=== PATIENT | female | born 1970 | race Caucasian/White ===

== ENCOUNTER 2016-09-18 00:25 | Emergency (ER) | payer MEDICAID ==
[~2016-09-18 00:25] MED LIST: ALBUTEROL; QVAR
[2016-09-18 02:42] LABS: CALCIUM 8.2 mg/dL (8.5-10.1); CARBON DIOXIDE 26.5 mmol/L (21-32); CHLORIDE SERUM 105 mmol/L (98-107); CREATININE SERUM 0.6 mg/dL (0.6-1.0); GFR1 > 60 mL/min; GLUCOSE SERUM 110 mg/dL (74-106); POTASSIUM SERUM 3.5 mmol/L (3.5-5.1); SODIUM SERUM 142 mmol/L (136-145)
[2016-09-18 02:47] LABS: ALKALINE PHOSPHATASE 100 U/L (46-116); ALT/SGPT 37 U/L (14-59); AST/SGOT 45 U/L (15-37); BILIRUBIN TOTAL 0.37 mg/dL (0.20-1.00); LIPASE 154 IU/L (73-393); TOTAL PROTEIN, SERUM 6.7 g/dL (6.4-8.2)
[2016-09-18 02:48] LABS: ALBUMIN 3.2 g/dL (3.4-5.0)
[2016-09-18 02:54] LABS: BASOPHIL % 0.5 % (0-2); PLATELET COUNT 227 x10^3mcL (130-400)
[2016-09-18 02:57] LABS: RED CELL DISTRIBUTION WIDTH 20.2 % (11.5-14.5)
[2016-09-18 03:36] VITALS: BP 120/70
== END 2016-09-18 03:36 | disposition home or self-care (01) ==
LOC: ED 00:25
PROVIDERS: Emergency Medicine
DX: R10.30 Lower abdominal pain, unspecified (principal); R11.10 Vomiting, unspecified; R06.2 Wheezing; F11.20 Opioid dependence, uncomplicated; J45.909 Unspecified asthma, uncomplicated; G89.29 Other chronic pain; M54.2 Cervicalgia; M54.9 Dorsalgia, unspecified; Z88.8 Allergy status to other drugs, medicaments and biological substances
CPT/HCPCS: J2270; J2405; J7613; J7644; Q0092

== ENCOUNTER 2016-10-09 00:51 | Emergency (ER) | payer MEDICAID ==
[2016-10-09 03:33] LABS: BASOPHIL % 1.4 % (0-2); PLATELET COUNT 229 x10^3mcL (130-400)
[2016-10-09 04:02] LABS: CALCIUM 8.4 mg/dL (8.5-10.1); CARBON DIOXIDE 26.4 mmol/L (21-32); CHLORIDE SERUM 105 mmol/L (98-107); CREATININE SERUM 0.6 mg/dL (0.6-1.0); GFR1 > 60 mL/min; GLUCOSE SERUM 106 mg/dL (74-106); POTASSIUM SERUM 3.6 mmol/L (3.5-5.1); SODIUM SERUM 142 mmol/L (136-145)
[2016-10-09 04:24] LABS: RED CELL DISTRIBUTION WIDTH 19.7 % (11.5-14.5)
[2016-10-09 05:25] VITALS: BP 125/61
== END 2016-10-09 05:25 | disposition home or self-care (01) ==
LOC: ED 00:51
PROVIDERS: Emergency Medicine
DX: N93.9 Abnormal uterine and vaginal bleeding, unspecified (principal); D25.9 Leiomyoma of uterus, unspecified; D64.9 Anemia, unspecified; J45.909 Unspecified asthma, uncomplicated
CPT/HCPCS: 36415; J2270; Q0162

== ENCOUNTER 2016-11-02 05:20 | Emergency (ER) | payer MEDICAID ==
[2016-11-02 07:07] LABS: BASOPHIL % 0.4 % (0-2); PLATELET COUNT 230 x10^3mcL (130-400)
[2016-11-02 07:08] LABS: RED CELL DISTRIBUTION WIDTH 17.7 % (11.5-14.5); rbc morphology (normal/abnorm) ABNORMAL (NORMAL)
[2016-11-02 07:20] VITALS: BP 117/67
[2016-11-02 07:27] LABS: CALCIUM 8.5 mg/dL (8.5-10.1); CARBON DIOXIDE 25.9 mmol/L (21-32); CHLORIDE SERUM 109 mmol/L (98-107); CREATININE SERUM 0.6 mg/dL (0.6-1.0); GFR1 > 60 mL/min; GLUCOSE SERUM 93 mg/dL (74-106); POTASSIUM SERUM 3.4 mmol/L (3.5-5.1); SODIUM SERUM 142 mmol/L (136-145)
[2016-11-02 08:42] LABS: ovalocyte/elliptocyte 1+
== END 2016-11-02 07:51 | disposition home or self-care (01) ==
LOC: ED 05:20
PROVIDERS: Emergency Medicine
DX: R10.9 Unspecified abdominal pain (principal); J45.909 Unspecified asthma, uncomplicated; G89.4 Chronic pain syndrome; Z88.5 Allergy status to narcotic agent; Z88.8 Allergy status to other drugs, medicaments and biological substances; Z88.6 Allergy status to analgesic agent; Z79.899 Other long term (current) drug therapy
CPT/HCPCS: 36415

== ENCOUNTER 2016-11-08 01:01 | Emergency (ER) | payer MEDICAID ==
[2016-11-08 03:22] LABS: CALCIUM 8.2 mg/dL (8.5-10.1); CARBON DIOXIDE 23.5 mmol/L (21-32); CHLORIDE SERUM 106 mmol/L (98-107); CREATININE SERUM 0.6 mg/dL (0.6-1.0); GFR1 > 60 mL/min; GLUCOSE SERUM 98 mg/dL (74-106); POTASSIUM SERUM 3.5 mmol/L (3.5-5.1); SODIUM SERUM 140 mmol/L (136-145)
[2016-11-08 03:24] LABS: BASOPHIL % 0.4 % (0-2); PLATELET COUNT 250 x10^3mcL (130-400)
[2016-11-08 03:26] LABS: ALKALINE PHOSPHATASE 70 U/L (46-116); ALT/SGPT 29 U/L (14-59); AST/SGOT 20 U/L (15-37); BILIRUBIN TOTAL 0.28 mg/dL (0.20-1.00); TOTAL PROTEIN, SERUM 6.9 g/dL (6.4-8.2)
[2016-11-08 03:27] LABS: ALBUMIN 3.2 g/dL (3.4-5.0)
[2016-11-08 03:30] LABS: RED CELL DISTRIBUTION WIDTH 17.5 % (11.5-14.5)
[2016-11-08 04:50] VITALS: BP 109/56
== END 2016-11-08 04:50 | disposition home or self-care (01) ==
LOC: ED 01:01
PROVIDERS: Emergency Medicine
DX: D50.9 Iron deficiency anemia, unspecified (principal); D25.9 Leiomyoma of uterus, unspecified; J45.909 Unspecified asthma, uncomplicated
CPT/HCPCS: 36415; J1885

== ENCOUNTER 2016-11-14 15:25 | Inpatient (IN) | payer MEDICAID ==
[~2016-11-14] VITALS: Ht 170.2 cm; Wt 76.7 kg
--- NOTE | 2016-11-14 16:17 | NUR ---
MSE COMPLETED BY DR VARGAS
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
--- NOTE | 2016-11-14 16:21 | NUR ---
LAB AT BEDSIDE
[2016-11-14 16:32] LABS: microscopic required? NO
[2016-11-14 16:39] LABS: UA SPECIFIC GRAVITY >=1.030 (1.005-1.035); urine erythrocyte NEGATIVE (NEGATIVE)
[2016-11-14 16:47] LABS: CALCIUM 8.1 mg/dL (8.5-10.1); CARBON DIOXIDE 27.8 mmol/L (21-32); CHLORIDE SERUM 109 mmol/L (98-107); CREATININE SERUM 0.7 mg/dL (0.6-1.0); GFR1 > 60 mL/min; GLUCOSE SERUM 105 mg/dL (74-106); POTASSIUM SERUM 3.5 mmol/L (3.5-5.1); SODIUM SERUM 140 mmol/L (136-145)
[2016-11-14 16:51] LABS: ALKALINE PHOSPHATASE 74 U/L (46-116); ALT/SGPT 18 U/L (14-59); AST/SGOT 14 U/L (15-37); BILIRUBIN TOTAL 0.3 mg/dL (0.20-1.00); LIPASE 158 IU/L (73-393); TOTAL PROTEIN, SERUM 6.9 g/dL (6.4-8.2)
[2016-11-14 16:53] LABS: ALBUMIN 3.1 g/dL (3.4-5.0)
--- NOTE | 2016-11-14 17:42 | NUR ---
PT REPORTING PAIN OF 8 DR VARGAS MADE AWARE
--- NOTE | 2016-11-14 18:13 | NUR ---
PT OFF THE FLOOR TO US.
--- NOTE | 2016-11-14 18:25 | NUR ---
PT NOW LEAVING TO US AT THIS TIME VIA WHEELCHAIR. PT AMBUALTED TO WHEELCHAIR AT BEDSIDE WITH OUT ASSISTANCE.
--- NOTE | 2016-11-14 19:15 | NUR ---
REPORT RECEIVED FROM JOEY BRITO. PT RESTING IN BED WITH NO SIGNS OF DISTRESS NOTED AT THIS TIME.
--- NOTE | 2016-11-14 20:10 | NUR ---
PT UP TO RESTROOM. PT REQUESTING MORE PAIN MEDICATON. DR VARGAS MADE AWARE.
--- NOTE | 2016-11-14 20:21 | NUR ---
DR VARGAS AT BEDSIDE TO DISCUSS PLAN OF CARE WITH PT
[2016-11-14 20:25] LABS: BASOPHIL % 0.5 % (0-2); PLATELET COUNT 251 x10^3mcL (130-400); RED CELL DISTRIBUTION WIDTH 17.5 % (11.5-14.5)
[2016-11-14] MEDS ORDERED: PROAIR HFA8.5 GM IH (21:14)
[2016-11-14] MEDS ORDERED: MORPHINE SULFAT15 MG PO (21:14)
[2016-11-14] MEDS ORDERED: NORETHINDRONE AC5 MG PO (21:14)
[2016-11-14] MEDS ORDERED: QVAR0.08 MG/Ac IH (21:16)
[2016-11-14] MEDS ORDERED: NATURAL IRON65 MG PO (21:16)
--- NOTE | 2016-11-14 21:37 | NUR ---
REPORT GIVEN TO BLAINE BRITO.
[2016-11-14 21:54] VITALS: BP 110/61
--- NOTE | 2016-11-14 22:05 | NUR ---
RECEIVED PATIENT FROM ED VIA GUERNEY, PATIENT ALERT AND ORIENTED, TELE # 6 SR, IV ACCESS TO LAC WNL, C/O PAIN TO HER ABD AND BACK, WILL MEDICATE ORDERED, CORIENTED PATIENT TO ROOM AND SURROUNDINGS, BED IN LOW POSITION, BED RAILS UP X 2, CALL LIGHT WITHIN REACH, WILL ENDORSE CARE TO PRIMARY NURSE BLAINE BRITO
--- NOTE | 2016-11-14 22:15 | NUR ---
RECEIVED PT FROM RUFUS BRITO. PT IS ALERT/ORIENTED X4. PT C/O BACK AND ABD PAIN, STATES THE PAIN LEVEL IS A 10/10. PT REQUESTING "MORPHINE 5 MG" AND "BENADRYL 25 MG". WILL NOTIFY ANDRÉS OF PT REQUEST. PT STATES IS NOT BLEEDING VAGINALLY AT THIS TIME.PT STATES THE VAGINAL BLEEDING STOPPED AT APPROXIMATELY "4:00 TODAY". WILL CONTINUE TO MONITOR. PT IS MISSING SEVERAL TEETH.
--- NOTE | 2016-11-14 22:30 | NUR ---
INFORMED DR BOWEN OF PT REQUEST FOR "5 MG MORPHINE" AND BENADRYL [address] BOWEN STATED HE WILL SPEAK TO THE PT.
[2016-11-14 22:42] LABS: MAGNESIUM 1.8 mg/dL (1.8-2.4); PHOSPHOROUS 3.5 mg/dL (2.5-4.9)
[2016-11-14 22:43] LABS: CHOLESTEROL/HDL RATIO 3.4
--- NOTE | 2016-11-14 22:45 | NUR ---
SCD'S APPLIED TO BLE
[2016-11-14 22:46] LABS: T3 TOTAL 1.21 ng/mL
[2016-11-14 22:55] LABS: FREE T4 0.93 ng/dL (0.76-1.46); FREE THYROXINE INDEX 2.6 ug/dL (1.4-4.5); T4(THYROXINE) 7.5 ug/dL (4.7-13.3)
[2016-11-14 23:14] LABS: AMPHETAMINE QUAL UR NONE DETECTED (NEG <=1000)
--- NOTE | 2016-11-14 23:39 | NUR ---
DR BOWEN STATED DR SALCIDO IS THE ADMITTING MD. SPOKE WITH DR SALCIDO, INFORMED HIM PT C/O ABD AND BACK PAIN 01/19. ALSO INFORMED HIM OF PT REQUEST OF "MORPHINE 5 MG" AND OF "BENADRYL 25 MG". ALSO INFORMED DR SALCIDO PT IS REQUESTING "ORANGE JUICE" AND "CRACKERS". DR SALCIDO STATED HE WILL GO AND SEE THE PT.
--- NOTE | 2016-11-15 00:33 | NUR ---
PT C/O BACK AND ABD PAIN. PT REQUESTING MORPHINE AND BENADRYL. PT STATES WANTS THE BENADRYL TO PREVENT "REACTION FROM THE MORPHINE". MEDICATED WITH BENADRYL PER MD ONE TIME ORDER. WILL CONTINUE TO MONITOR.
--- NOTE | 2016-11-15 01:18 | NUR ---
WENT IN PT ROOM, [place] [address]. MORPHINE SULFATE NOT ADMINISTERED TO PT, PT SLEEPING. WILL CONTINUE TO MONITOR.
--- NOTE | 2016-11-15 02:56 | NUR ---
PT SLEEPING. BREATHING IS EVEN AND UNLABORED. NO DISTRESS NOTED. WILL CONTINUE TO MONITOR.
[2016-11-15 05:11] VITALS: BP 110/60
--- NOTE | 2016-11-15 05:11 | NUR ---
PT C/O BACK, LF SHOULDER AND ABD PAIN. PT STATED OK TO ADMINISTER THE MORPHINE SULFATE WITHOUT THE BENADRYL. DR BOWEN IN ROOM. PT REQUESTING THE DOSE OF MORPHINE TO BE INCREASED.
--- NOTE | 2016-11-15 05:21 | NUR ---
INFORMED DR SALCIDO OF PT REQUESTING AN INCREASE OF THE MORPHINE, PT STATING 2 MG "DOESEN'T WORK". NO NEW ORDERS GIVEN. WILL CONTINUE TO MONITOR.
--- NOTE | 2016-11-15 05:39 | NUR ---
PT SLEPT IN LONG INTERVALS DURING THE NIGHT. WILL CONTINUE TO MONITOR.
--- NOTE | 2016-11-15 06:59 | NUR ---
PT NOW SLEEPING AFTER BEING MEDICATED WITH MORPHINE SULFATE AT 0511. WILL CONTINUE TO MONITOR.
[2016-11-15 08:12] LABS: CALCIUM 7.8 mg/dL (8.5-10.1); CHLORIDE SERUM 111 mmol/L (98-107); CREATININE SERUM 0.6 mg/dL (0.6-1.0); GFR1 > 60 mL/min; GLUCOSE SERUM 79 mg/dL (74-106); POTASSIUM SERUM 3.6 mmol/L (3.5-5.1); SODIUM SERUM 136 mmol/L (136-145)
[2016-11-15 09:35] LABS: BASOPHIL % 0.5 % (0-2); PLATELET COUNT 258 x10^3mcL (130-400)
[2016-11-15 09:40] LABS: RED CELL DISTRIBUTION WIDTH 17.2 % (11.5-14.5)
[2016-11-15 09:45] VITALS: BP 108/54
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
[2016-11-15 10:50] LABS: rbc morphology (normal/abnorm) ABNORMAL (NORMAL)
[2016-11-15 10:54] LABS: ovalocyte/elliptocyte 1+
--- NOTE | 2016-11-15 10:58 | NUR ---
SEEN BY THE INTERNS AND DR ACUNA AND PLAN OF CARE DISCUSSED. THE INTERNS AND THE RESIDENT NOTED THE FOUL ODOR AND WILL NEED TO HAVE THE PATIENT DO ORAL CARE AND A SHOWER. TONYA HAS BEEN ANXIOUS ABOUT HER H AND H AND ADVSIED THAT NO TRANSFUSE SHE DOES NOT MEET THAT CRITERIA AT THIS TIME. SHE WANTS A DIET SHE STATES THAT THE DOCTOR STATES SHE CAN EAT AND SHE WANTS HER PAIN MEDICATION INCREASED. WILL AWAIT ORDERS FOR ANY OF THESE REQUESTS INDICATED. PATIENT ENCOURAGE TO UTILIZE PATIENCE AT THIS TIME. WILL CONTINUE TO MONITOR.
--- NOTE | 2016-11-15 13:00 | NUR ---
TONYA ADVISED OF THE MORPHIEN IS NOT DUE FOR ANOTHER TWENTY MINUTS AND STELLA WANTS FOOD AND SHE WANT MORE OF THE PAIN MEDICAION IN A SDOSAGE CHANGE . ADVISED THE PATIENT SHE IS TO BE NPO AND THAT THE MOHEIN IS NOT CHANGED AND NO RODERE TO BE CHANGED AT THIS TIME. ROSA IS TO BE SEEN BY AN OBGYN AND POSSIBLE SURGERY WITH DR Shiraz WELCH. SHE DOES NOT WANT THIS SURGERY AND SHE DISSED THE NURSE AND AT THIS TIME REFUSED MEDICAION OR CARE. STAFF WHENT BACK AGAIN WHEN THE MOPHIEN WAS DUE AND DOUG DUMONT. SHE AGREED TO TAKE BUT ASKED AGAIN IF THE DOCTOR HAS RAISE THE DOSAGE. PATIENT IS DETERMINED TO GET MORE SHE STATES THE 2MG DOD SNOT TOUCH HER AT ALL. SHE HAS BEEN ENCOURAGED SEVERAL TIMES TO BATH AND GIVEN ALL THE EQUIPMENT TO DO SO BUT SHE KEEPS PUTTING IT OFF AND SHE STATES SHE WILL DO LATER. TONYA PETTYS BEEN ADVISED OF HER PERSONAL HYGENE AND SHE IS NOW ASKING FOR BENADRYL. IT WAS A ONE TIME DOSE YESTERDAY AND NO FURTHER ORDERS AT THIS TIME. A SIDE ISSUE ADVISED THAT A BATH MAY ALSO RELIEVE THE ITCHNESS OF THE PATIENT AND TO PLEASE BATH. SO FAR SHE HAS PUT OFF THE NURSE AND FITNESS MANAGER. WILL CONTINUE TO ENCOURAGE COMPLIANCE.
[2016-11-15 13:09] VITALS: BP 108/54
[2016-11-15 13:25] VITALS: BP 101/50
--- NOTE | 2016-11-15 14:34 | NUR ---
PATIENT AGREEABLE FOR SHOWERING. DISCONNECTED AND APPLIED PROTECTION TO THE IV SITES. PATIENT IS SOAKING HER FOOT SHE TSTATE SSH HAS A INGROWN TOENAIL. SHE WILL THEN HOPEFULLY GET IN THE SHOWER AND RELIEVE THE FOUL ODOR. WILL CONTINUE TO MONITOR. SHE HAS NOT ASKED AGAIN FOR BENADRYL BUT SHE IS ASKING FOR THE NEXT PAIN MEDICATION AND WHEN IT IS DUE.
--- NOTE | 2016-11-15 15:06 | NUR ---
echocardiogram pending patient taking shower
--- NOTE | 2016-11-15 17:24 | NUR ---
MORPHINE EFFECTIVE AT [facility]. DISPITE THE SHOWER PATEINT STILL HAS A FOUL ODOR. STAFF FEELS IT IS THE ORAL THAT IS SMELLING AND ENCOUDRAGE ORAL CARE BUT DUE TO POOR DENTAL THE PATIENT MAY HAVE BEYOND THE HELP OF JUST WASHING OUT THE MOUTH. PATIENT IS REQUESTING BENADRY AGAIN. ADVSE THE PATIENT THAT THE MEDICATION WAS REQUESTED EARLIER INDICATED. MORPHINE HAS BEEN EFFECTIE BUT SHE STILL WITH AN UPPING OF THE DOSING.
[2016-11-15 17:45] VITALS: BP 101/59
--- NOTE | 2016-11-15 19:50 | NUR ---
PT ALERT/ORIENTED X4. PT C/O ABD, BACK AND LF SHOULDER PAIN, RATES THE PAIN AT A 10/10. PT WAS MEDICATED WITH MORPHINE SULFATE BY THE DAY NURSE (SEE EMAR). PT REQUESTING BREATHING TREATMENT. PT STATED WAS TO HAVE ONE EARLIER BUT DID NOT "FEEL WELL" AND TOLD RT TO COME BACK LATER. PT REQUESTING "FOOD" STATED DR WELCH CAME AND SAW HER AND STATED IT WAS OK TO EAT. PT ALSO REQUESTING BENADRYL. WILL INFORM DR BOWEN. PT ASSESSED; SEE NSG FLOWSHEET. SAFETY REINFORCED; SEE EDUCAT SHEET. WILL CONTINUE TO MONITOR.
--- NOTE | 2016-11-15 20:15 | NUR ---
INFORMED DR BOWEN PT STATED DR WELCH SAID OK TO EAT. ALSO, INFORMED DR BOWEN PT IS REQUESTING BENADRYL. DR BOWEN STATED HE WILL PUT IN A DIET ORDER. DR BOWEN STATED HE WILL CHECK ON THE BENADRYL
[2016-11-15 21:11] VITALS: BP 103/53
--- NOTE | 2016-11-15 23:00 | NUR ---
PT REQUESTING PAIN MED. C/O PAIN TO LF SHOULDER ABD AND BACK. WILL MEDICATE PER MD PRN ORDER.
--- NOTE | 2016-11-15 23:39 | NUR ---
PT C/O BACK, ABD AND LF SHOULDER PAIN. PT STATES THE PAIN LEVEL IS 10/10 ON THE PAIN SCALE. MEDICATED PT WITH MORPHINE SULFATE 2 MG IVP PER MD PRN ORDER. WILL CONTINUE TO MONITOR.
--- NOTE | 2016-11-16 00:17 | NUR ---
PT NOW SLEEPING AFTER BEING MEDICATED WITH MORPHINE SULFATE AT 2328 (SEE EMAR). BREATHING IS EVEN AND UNLABORED.WILL CONTINUE TO MONITOR.
[2016-11-16 01:06] VITALS: BP 95/50
--- NOTE | 2016-11-16 01:06 | NUR ---
TELE PRECISION AGRICULTURE TECHNICIAN PHONED AND STATED PT IS HAVING SR/SA. WENT IN PT ROOM, PT SLEEPING, AROUSED EASILY. VS; BP; 95/50, MAP; 65, HR; 64, O2 SAT ON RA;96%, RESP; 16 PT NO C/O CP. DR BOWEN MADE AWARE OF THE ABOVE, NO NEW ORDERS GIVEN. WILL CONTINUE TO MONITOR.
[2016-11-16 06:22] VITALS: BP 100/58
[2016-11-16 06:25] LABS: CALCIUM 8.3 mg/dL (8.5-10.1); CARBON DIOXIDE 23.5 mmol/L (21-32); CHLORIDE SERUM 106 mmol/L (98-107); CREATININE SERUM 0.6 mg/dL (0.6-1.0); GFR1 > 60 mL/min; GLUCOSE SERUM 78 mg/dL (74-106); POTASSIUM SERUM 3.7 mmol/L (3.5-5.1); SODIUM SERUM 140 mmol/L (136-145)
[2016-11-16 06:46] LABS: PLATELET COUNT 285 x10^3mcL (130-400)
--- NOTE | 2016-11-16 08:00 | NUR ---
PT AWAKE ALERT AND ORIENTED X4, ABLE TO MAKE NEEDS KNOWN. TELE 6 SR. LUNGS CTA. POOR DENTITION. BOWEL TONES ACTIVE IN ALL QUADS, BRP. SKIN IS CDI. PT DENIES ACTIVE BLEEDING FROM VAGINA. IV TO THE LAC, PT PULLED OUT IV TO THE RH. PT APPEARS ANXIOUS DENIES SUISIDAL IDEATION. CALL LIGHT IN REACH.
--- NOTE | 2016-11-16 08:08 | NUR ---
PT REFUSED BREAKFAST TRAY STATED "THIS IS NOT WHAT I WANT TAKE IT AWAY".
--- NOTE | 2016-11-16 08:30 | NUR ---
PT CALLED DOWN TO KITCHEN ORDERED A NEW TRAY, GAVE TRAY TO PT.
[2016-11-16 10:00] VITALS: BP 100/58
[2016-11-16 11:00] LABS: ATYPICAL LYMPH 1 %; BAND NEUTROPHIL 1 % (0-10); BASOPHIL 0 % (0-2); MONOCYTE 7 % (0-7); SEGMENTED NEUTROPHILS 68 % (37-75)
[2016-11-16 11:04] LABS: PLATELET MORPHOLOGY PLATELETS NORMAL; rbc morphology (normal/abnorm) ABNORMAL (NORMAL)
--- NOTE | 2016-11-16 11:42 | NUR ---
DISCHARGE INSTRUCTIONS GIVEN TO PT, PT VERBALIZED UNDERSTANDING. PT GIVEN FOR SCRIPT FOR [facility] AND INFORMED OF NEED TO TAKE SCRIPT TO PHARMACY OF CHOICE, PT VERBALIZED UNDERSTANDING. PT STATED SHE HAD PULLED OUT BOTH IV'S AND DISCARDED BOTH CATHETERS, ARMS INSPECTED BOTH IV SITES GONE, GAUZE APPLIED TO SITES. TELE CLEANED AND RETURNED TO MONITOR ROOM. DR CEE INFORMED PT OF POSITIVE MRSA CULTURE, AND ASKED PT TO STAY AND WAIT FOR MEDICATION TO BE DISPENSED, PT STATED SHE WOULD WAIT.
--- NOTE | 2016-11-16 12:37 | NUR ---
HIBICLENS AND BACTROBAN GIVENT OPT AT THE TIME OF DISCHARGE, MEDICATION TEACHING DONE ON PROPER ADMINISTRATION, PT VERBALIZED UNDERSTANDING. ALL BELONGINGS TAKEN OFF THE FLOOR BY PT. PT ESCORTED DOWN TO LOBBY.
== END 2016-11-16 12:40 | disposition home or self-care (01) | DRG 532 ==
LOC: ED 15:25 → MU 20:46 → DU 20:46 → MU 20:46 → DU 21:43 → MU 11-16 09:43
PROVIDERS: Emergency Medicine; ADMIT Student in an Organized Health Care Education/Training Program
DX: D25.9 Leiomyoma of uterus, unspecified (principal); E44.1 Mild protein-calorie malnutrition; E87.8 Other disorders of electrolyte and fluid balance, not elsewhere classified; N93.8 Other specified abnormal uterine and vaginal bleeding; D50.0 Iron deficiency anemia secondary to blood loss (chronic); J45.909 Unspecified asthma, uncomplicated; S39.92XD Unspecified injury of lower back, subsequent encounter; Z68.26 Body mass index [BMI] 26.0-26.9, adult; Z91.19 Patient's noncompliance with other medical treatment and regimen; V49.9XXD Car occupant (driver) (passenger) injured in unspecified traffic accident, subsequent encounter
CPT/HCPCS: 83880; 84439; 94150; J1200; J2270; J2405; J3010; J7030; J7040; J7620; Q0092; Q9967

== ENCOUNTER 2016-12-01 11:04 | Emergency (ER) | payer MEDICAID ==
[~2016-12-01] VITALS: Ht 170.2 cm; Wt 87.5 kg
[~2016-12-01 11:04] MED LIST changes: +MORPHINE SULFAT15 MG PO; +NATURAL IRON65 MG PO; +NORETHINDRONE AC5 MG PO; +PROAIR HFA8.5 GM IH; +QVAR0.08 MG/Ac IH
[2016-12-01 13:18] LABS: UA SPECIFIC GRAVITY 1.025 (1.005-1.035); microscopic required? YES; urine erythrocyte 2+ (NEGATIVE)
[2016-12-01 13:46] LABS: CALCIUM 8.1 mg/dL (8.5-10.1); CARBON DIOXIDE 28.1 mmol/L (21-32); CHLORIDE SERUM 108 mmol/L (98-107); CREATININE SERUM 0.6 mg/dL (0.6-1.0); GFR1 > 60 mL/min; GLUCOSE SERUM 92 mg/dL (74-106); POTASSIUM SERUM 3.5 mmol/L (3.5-5.1); SODIUM SERUM 139 mmol/L (136-145)
[2016-12-01 13:47] LABS: BASOPHIL % 0.6 % (0-2); PLATELET COUNT 298 x10^3mcL (130-400)
[2016-12-01 13:49] LABS: RED CELL DISTRIBUTION WIDTH 17.5 % (11.5-14.5)
[2016-12-01 14:34] VITALS: BP 105/65
== END 2016-12-01 14:34 | disposition home or self-care (01) ==
LOC: ED 11:04
PROVIDERS: Emergency Medicine
DX: R10.30 Lower abdominal pain, unspecified (principal); N93.9 Abnormal uterine and vaginal bleeding, unspecified; D64.9 Anemia, unspecified; J45.909 Unspecified asthma, uncomplicated; Z87.42 Personal history of other diseases of the female genital tract
CPT/HCPCS: 36415; J0500

== ENCOUNTER 2016-12-15 08:31 | Emergency (ER) | payer MEDICAID ==
[~2016-12-15] VITALS: Ht 170.2 cm; Wt 85.7 kg
[2016-12-15 09:42] LABS: CALCIUM 8.3 mg/dL (8.5-10.1); CHLORIDE SERUM 106 mmol/L (98-107); CREATININE SERUM 0.6 mg/dL (0.6-1.0); GFR1 > 60 mL/min; GLUCOSE SERUM 80 mg/dL (74-106); POTASSIUM SERUM 3.5 mmol/L (3.5-5.1); SODIUM SERUM 138 mmol/L (136-145)
[2016-12-15 09:43] LABS: AMYLASE 46 U/L (25-115); CARBON DIOXIDE 25.8 mmol/L (21-32)
[2016-12-15 09:47] LABS: BASOPHIL % 0.5 % (0-2); PLATELET COUNT 273 x10^3mcL (130-400)
[2016-12-15 09:50] LABS: RED CELL DISTRIBUTION WIDTH 17.3 % (11.5-14.5)
[2016-12-15 09:56] LABS: ALKALINE PHOSPHATASE 85 U/L (46-116); ALT/SGPT 20 U/L (14-59); AST/SGOT 15 U/L (15-37); BILIRUBIN TOTAL 0.3 mg/dL (0.20-1.00); LIPASE 103 IU/L (73-393); TOTAL PROTEIN, SERUM 7.4 g/dL (6.4-8.2)
[2016-12-15 10:03] LABS: ALBUMIN 3.3 g/dL (3.4-5.0)
[2016-12-15 12:08] VITALS: BP 104/59
== END 2016-12-15 12:09 | disposition home or self-care (01) ==
LOC: ED 08:31
PROVIDERS: Emergency Medicine
DX: R10.9 Unspecified abdominal pain (principal); R11.0 Nausea; Z88.6 Allergy status to analgesic agent; D50.9 Iron deficiency anemia, unspecified
CPT/HCPCS: 36415; 83880; J0780; J3010

== ENCOUNTER 2016-12-19 07:53 | Emergency (ER) | payer MEDICAID ==
[~2016-12-19] VITALS: Ht 170.2 cm; Wt 84.8 kg
[2016-12-19 08:53] LABS: BASOPHIL % 0.2 % (0-2); PLATELET COUNT 259 x10^3mcL (130-400)
[2016-12-19 08:54] LABS: RED CELL DISTRIBUTION WIDTH 17.5 % (11.5-14.5); rbc morphology (normal/abnorm) ABNORMAL (NORMAL)
[2016-12-19 09:49] VITALS: BP 108/72
== END 2016-12-19 09:49 | disposition home or self-care (01) ==
LOC: ED 07:53
PROVIDERS: Emergency Medicine
DX: N93.8 Other specified abnormal uterine and vaginal bleeding (principal); D64.9 Anemia, unspecified; J45.909 Unspecified asthma, uncomplicated; Z79.891 Long term (current) use of opiate analgesic; Z79.899 Other long term (current) drug therapy; Z88.6 Allergy status to analgesic agent; Z88.8 Allergy status to other drugs, medicaments and biological substances; Z87.42 Personal history of other diseases of the female genital tract; Z98.890 Other specified postprocedural states
CPT/HCPCS: J2270; J2405

== ENCOUNTER 2016-12-21 21:59 | Inpatient (IN) | payer MEDICAID ==
[~2016-12-21] VITALS: Ht 170.2 cm; Wt 72.6 kg
[2016-12-22 00:31] LABS: BASOPHIL % 0.4 % (0-2); PLATELET COUNT 299 x10^3mcL (130-400)
[2016-12-22 00:35] LABS: CALCIUM 7.9 mg/dL (8.5-10.1); CARBON DIOXIDE 28.3 mmol/L (21-32); CHLORIDE SERUM 102 mmol/L (98-107); CREATININE SERUM 0.6 mg/dL (0.6-1.0); GFR1 > 60 mL/min; GLUCOSE SERUM 102 mg/dL (74-106); POTASSIUM SERUM 3.2 mmol/L (3.5-5.1); SODIUM SERUM 136 mmol/L (136-145); rbc morphology (normal/abnorm) ABNORMAL (NORMAL)
[2016-12-22 00:46] LABS: ALKALINE PHOSPHATASE 87 U/L (46-116); ALT/SGPT 21 U/L (14-59); AST/SGOT 18 U/L (15-37); BILIRUBIN TOTAL 0.4 mg/dL (0.20-1.00); TOTAL PROTEIN, SERUM 7.3 g/dL (6.4-8.2)
[2016-12-22 00:47] LABS: ALBUMIN 3.2 g/dL (3.4-5.0)
[2016-12-22 00:50] LABS: HCG SERUM QUALITATIVE NEGATIVE; HCG SERUM QUANTITATIVE 0 mIU/mL
[2016-12-22 01:48] LABS: CHOLESTEROL/HDL RATIO 3.8; MAGNESIUM 2.4 mg/dL (1.8-2.4); PHOSPHOROUS 3.5 mg/dL (2.5-4.9)
[2016-12-22 01:58] LABS: T3 TOTAL 1.25 ng/mL
[2016-12-22 01:59] LABS: FREE T4 1.08 ng/dL (0.76-1.46); T4(THYROXINE) 8.6 ug/dL (4.7-13.3)
[2016-12-22] MEDS ORDERED: COLACE100 MG PO (02:08)
[2016-12-22] MEDS ORDERED: MORPHINE SULFAT15 M7 PO (02:08)
[2016-12-22] MEDS ORDERED: NATURAL IRON65 MG PO (02:08)
[2016-12-22] MEDS ORDERED: PROAIR HFA8.5 GM IH (02:10)
[2016-12-22] MEDS ORDERED: NOR-QD0.35 MG (02:11)
[2016-12-22 02:18] LABS: UA SPECIFIC GRAVITY >=1.030 (1.005-1.035); microscopic required? YES; urine erythrocyte 2+ (NEGATIVE)
[2016-12-22 02:52] VITALS: BP 103/53
[2016-12-22 05:18] VITALS: BP 95/50
[2016-12-22 07:10] LABS: BASOPHIL % 0.7 % (0-2); PLATELET COUNT 272 x10^3mcL (130-400)
[2016-12-22 07:53] LABS: CARBON DIOXIDE 25.9 mmol/L (21-32); CHLORIDE SERUM 105 mmol/L (98-107); CREATININE SERUM 0.5 mg/dL (0.6-1.0); GFR1 > 60 mL/min; GLUCOSE SERUM 89 mg/dL (74-106); POTASSIUM SERUM 3.7 mmol/L (3.5-5.1); SODIUM SERUM 139 mmol/L (136-145)
[2016-12-22 08:19] LABS: RED CELL DISTRIBUTION WIDTH 16.8 % (11.5-14.5)
[2016-12-22 09:56] LABS: rbc morphology (normal/abnorm) ABNORMAL (NORMAL)
[2016-12-22 10:21] VITALS: BP 107/60
[2016-12-22 14:03] VITALS: BP 105/52
== END 2016-12-22 14:59 | disposition left against medical advice (07) | DRG 663 ==
LOC: ED 21:59 → DU 12-22 01:04 → MU 12-22 01:04 → DU 12-22 02:31 → MU 12-22 10:25
PROVIDERS: Emergency Medicine; ADMIT Family Medicine
DX: D50.0 Iron deficiency anemia secondary to blood loss (chronic) (principal); E44.0 Moderate protein-calorie malnutrition; N93.8 Other specified abnormal uterine and vaginal bleeding; G89.29 Other chronic pain; M54.9 Dorsalgia, unspecified; J45.909 Unspecified asthma, uncomplicated; E87.6 Hypokalemia; E03.9 Hypothyroidism, unspecified; E78.1 Pure hyperglyceridemia; Z68.21 Body mass index [BMI] 21.0-21.9, adult; Z22.322 Carrier or suspected carrier of Methicillin resistant Staphylococcus aureus
CPT/HCPCS: 82962; 83880; 84439; J2270; J2405; J2916; J3480; Q0092; Q0163

== ENCOUNTER 2017-02-04 07:20 | Emergency (ER) | payer MEDICAID ==
[~2017-02-04] VITALS: Ht 170.2 cm; Wt 75.3 kg
[~2017-02-04 07:20] MED LIST changes: +COLACE100 MG PO; +MORPHINE SULFAT15 M7 PO; +NOR-QD0.35 MG
[2017-02-04 08:42] LABS: BASOPHIL % 0.5 % (0-2); PLATELET COUNT 237 x10^3mcL (130-400)
[2017-02-04 08:49] LABS: RED CELL DISTRIBUTION WIDTH 20.4 % (11.5-14.5)
[2017-02-04 08:58] LABS: CALCIUM 8.5 mg/dL (8.5-10.1); CARBON DIOXIDE 25.5 mmol/L (21-32); CHLORIDE SERUM 106 mmol/L (98-107); CREATININE SERUM 0.6 mg/dL (0.6-1.0); GFR1 > 60 mL/min; GLUCOSE SERUM 102 mg/dL (74-106); POTASSIUM SERUM 4.1 mmol/L (3.5-5.1); SODIUM SERUM 139 mmol/L (136-145)
[2017-02-04 09:03] LABS: ALBUMIN 3.4 g/dL (3.4-5.0); ALKALINE PHOSPHATASE 86 U/L (46-116); ALT/SGPT 32 U/L (14-59); AST/SGOT 25 U/L (15-37); BILIRUBIN TOTAL 0.49 mg/dL (0.20-1.00); LIPASE 121 IU/L (73-393); TOTAL PROTEIN, SERUM 7.5 g/dL (6.4-8.2)
[2017-02-04 09:29] VITALS: BP 102/86
[2017-02-04 09:55] LABS: rbc morphology (normal/abnorm) ABNORMAL (NORMAL)
== END 2017-02-04 09:29 | disposition home or self-care (01) ==
LOC: ED 07:20
PROVIDERS: Emergency Medicine
DX: D64.9 Anemia, unspecified (principal); G89.29 Other chronic pain; M54.9 Dorsalgia, unspecified; J45.909 Unspecified asthma, uncomplicated; Z88.8 Allergy status to other drugs, medicaments and biological substances
CPT/HCPCS: J2270; J2405; J3490

== ENCOUNTER 2017-02-15 14:03 | Emergency (ER) | payer MEDICAID ==
[2017-02-15 16:26] LABS: BASOPHIL % 0.1 % (0-2); PLATELET COUNT 311 x10^3mcL (130-400)
[2017-02-15 16:31] LABS: CALCIUM 8.1 mg/dL (8.5-10.1); CARBON DIOXIDE 26.2 mmol/L (21-32); CHLORIDE SERUM 103 mmol/L (98-107); CREATININE SERUM 0.7 mg/dL (0.6-1.0); GFR1 > 60 mL/min; GLUCOSE SERUM 103 mg/dL (74-106); POTASSIUM SERUM 3.4 mmol/L (3.5-5.1); SODIUM SERUM 138 mmol/L (136-145)
[2017-02-15 16:35] LABS: ALKALINE PHOSPHATASE 77 U/L (46-116); ALT/SGPT 16 U/L (14-59); AST/SGOT 17 U/L (15-37); BILIRUBIN TOTAL 0.5 mg/dL (0.20-1.00); TOTAL PROTEIN, SERUM 7.3 g/dL (6.4-8.2)
[2017-02-15 16:36] LABS: RED CELL DISTRIBUTION WIDTH 21.9 % (11.5-14.5)
[2017-02-15 16:44] LABS: ALBUMIN 3.2 g/dL (3.4-5.0)
[2017-02-15 17:59] VITALS: BP 115/74
== END 2017-02-15 17:59 | disposition home or self-care (01) ==
LOC: ED 14:03
DX: N93.8 Other specified abnormal uterine and vaginal bleeding (principal); J45.909 Unspecified asthma, uncomplicated; G89.29 Other chronic pain; M54.9 Dorsalgia, unspecified; Z88.8 Allergy status to other drugs, medicaments and biological substances
CPT/HCPCS: 36415; J3010

== ENCOUNTER 2017-02-24 00:51 | Emergency (ER) | payer MEDICAID ==
[2017-02-24 05:00] LABS: microscopic required? NO
[2017-02-24 05:10] LABS: BASOPHIL % 1.2 % (0-2); PLATELET COUNT 276 x10^3mcL (130-400)
[2017-02-24 05:15] LABS: UA SPECIFIC GRAVITY >=1.030 (1.005-1.035); urine erythrocyte NEGATIVE (NEGATIVE)
[2017-02-24 08:30] VITALS: BP 115/59
== END 2017-02-24 08:47 | disposition home or self-care (01) ==
LOC: ED 00:51
PROVIDERS: Emergency Medicine
DX: N93.8 Other specified abnormal uterine and vaginal bleeding (principal); G89.29 Other chronic pain; Z88.8 Allergy status to other drugs, medicaments and biological substances
CPT/HCPCS: 36415; Q0092

== ENCOUNTER 2017-03-11 16:03 | Emergency (ER) | payer MEDICAID ==
[~2017-03-11] VITALS: Ht 170.2 cm; Wt 85.3 kg
[2017-03-11 17:46] LABS: BASOPHIL % 0.6 % (0-2); PLATELET COUNT 262 x10^3mcL (130-400)
[2017-03-11 17:49] LABS: RED CELL DISTRIBUTION WIDTH 20.8 % (11.5-14.5)
[2017-03-11 18:20] LABS: rbc morphology (normal/abnorm) ABNORMAL (NORMAL)
[2017-03-11 19:56] VITALS: BP 102/75
== END 2017-03-11 19:45 | disposition home or self-care (01) ==
LOC: ED 16:03
PROVIDERS: Emergency Medicine
DX: N92.0 Excessive and frequent menstruation with regular cycle (principal); D64.9 Anemia, unspecified; J45.909 Unspecified asthma, uncomplicated; Z88.6 Allergy status to analgesic agent; Z88.8 Allergy status to other drugs, medicaments and biological substances
CPT/HCPCS: 36415; Q0162

== ENCOUNTER 2017-03-24 11:04 | Emergency (ER) | payer MEDICAID ==
[~2017-03-24] VITALS: Ht 170.2 cm; Wt 84.8 kg
[2017-03-24 11:22] VITALS: BP 142/74
== END 2017-03-24 14:12 | disposition home or self-care (01) ==
LOC: ED 11:04
DX: N94.6 Dysmenorrhea, unspecified (principal); J45.909 Unspecified asthma, uncomplicated; Z86.2 Personal history of diseases of the blood and blood-forming organs and certain disorders involving the immune mechanism; Z88.6 Allergy status to analgesic agent; Z88.8 Allergy status to other drugs, medicaments and biological substances

== ENCOUNTER 2017-07-13 22:31 | Emergency (ER) | payer MEDICAID ==
[2017-07-13 23:44] LABS: BASOPHIL % 0.7 % (0-2); PLATELET COUNT 307 x10^3mcL (130-400)
[2017-07-13 23:47] LABS: RED CELL DISTRIBUTION WIDTH 20.5 % (11.5-14.5)
[2017-07-13 23:49] LABS: CALCIUM 8.2 mg/dL (8.5-10.1); CARBON DIOXIDE 25.4 mmol/L (21-32); CHLORIDE SERUM 105 mmol/L (98-107); CREATININE SERUM 0.8 mg/dL (0.6-1.0); GFR1 > 60 mL/min; GLUCOSE SERUM 91 mg/dL (74-106); POTASSIUM SERUM 3.8 mmol/L (3.5-5.1); SODIUM SERUM 137 mmol/L (136-145)
[2017-07-13 23:53] LABS: ALBUMIN 3.4 g/dL (3.4-5.0); ALKALINE PHOSPHATASE 94 U/L (46-116); ALT/SGPT 22 U/L (14-59); AMYLASE 51 U/L (25-115); AST/SGOT 17 U/L (15-37); BILIRUBIN TOTAL 0.3 mg/dL (0.20-1.00); LIPASE 136 IU/L (73-393); TOTAL PROTEIN, SERUM 7.2 g/dL (6.4-8.2)
[2017-07-14 01:01] VITALS: BP 101/58
== END 2017-07-14 01:01 | disposition home or self-care (01) ==
LOC: ED 22:31
PROVIDERS: Emergency Medicine
DX: D64.9 Anemia, unspecified (principal); G89.29 Other chronic pain; M54.9 Dorsalgia, unspecified; J45.909 Unspecified asthma, uncomplicated; Z88.8 Allergy status to other drugs, medicaments and biological substances
CPT/HCPCS: 36415; 83880

== ENCOUNTER 2017-07-27 07:22 | Emergency (ER) | payer MEDICAID ==
[~2017-07-27] VITALS: Ht 170.2 cm; Wt 81.2 kg
[2017-07-27 07:29] VITALS: Ht 170.2 cm; Wt 81.2 kg
[2017-07-27 08:32] LABS: PLATELET COUNT 304 x10^3mcL (130-400)
[2017-07-27 08:35] LABS: RED CELL DISTRIBUTION WIDTH 20.7 % (11.5-14.5)
[2017-07-27 08:39] LABS: CALCIUM 8.4 mg/dL (8.5-10.1); CARBON DIOXIDE 26.9 mmol/L (21-32); CHLORIDE SERUM 104 mmol/L (98-107); CREATININE SERUM 0.7 mg/dL (0.6-1.0); GFR1 > 60 mL/min; GLUCOSE SERUM 82 mg/dL (74-106); POTASSIUM SERUM 3.4 mmol/L (3.5-5.1); SODIUM SERUM 139 mmol/L (136-145)
[2017-07-27 08:43] LABS: ALBUMIN 3.9 g/dL (3.4-5.0); ALKALINE PHOSPHATASE 96 U/L (46-116); ALT/SGPT 34 U/L (14-59); AST/SGOT 21 U/L (15-37); BILIRUBIN TOTAL 0.4 mg/dL (0.20-1.00); TOTAL PROTEIN, SERUM 8.2 g/dL (6.4-8.2)
[2017-07-27 09:00] LABS: BAND NEUTROPHIL 0 % (0-10); BASOPHIL 0 % (0-2); MONOCYTE 1 % (0-7); SEGMENTED NEUTROPHILS 68 % (37-75)
[2017-07-27 09:01] LABS: PLATELET MORPHOLOGY PLATELETS NORMAL; rbc morphology (normal/abnorm) ABNORMAL (NORMAL)
[2017-07-27 11:06] LABS: UA SPECIFIC GRAVITY >=1.030 (1.005-1.035); microscopic required? YES; urine erythrocyte NEGATIVE (NEGATIVE)
[2017-07-27 12:28] VITALS: BP 110/64
== END 2017-07-27 12:28 | disposition home or self-care (01) ==
LOC: ED 07:22
PROVIDERS: Emergency Medicine Emergency Medical Services
DX: N89.8 Other specified noninflammatory disorders of vagina (principal); J45.909 Unspecified asthma, uncomplicated; G89.29 Other chronic pain; M54.9 Dorsalgia, unspecified; Z88.8 Allergy status to other drugs, medicaments and biological substances
CPT/HCPCS: 36415; 87491; 87591; J0696; J2001; Q0162; Q0163

== ENCOUNTER 2017-07-30 21:39 | Emergency (ER) | payer MEDICAID ==
[~2017-07-30] VITALS: Ht 175.3 cm; Wt 81.6 kg
[2017-07-30 22:09] VITALS: Ht 175.3 cm; Wt 81.6 kg
[2017-07-31 01:38] VITALS: BP 109/52
== END 2017-07-31 01:38 | disposition home or self-care (01) ==
LOC: ED 21:39
DX: S39.012A Strain of muscle, fascia and tendon of lower back, initial encounter (principal); J45.909 Unspecified asthma, uncomplicated; F17.210 Nicotine dependence, cigarettes, uncomplicated; Z88.8 Allergy status to other drugs, medicaments and biological substances; W19.XXXA Unspecified fall, initial encounter; Y93.89 Activity, other specified; Y99.8 Other external cause status; Y92.89 Other specified places as the place of occurrence of the external cause

== ENCOUNTER 2017-08-10 19:24 | Inpatient (IN) | payer MEDICAID ==
[~2017-08-10] VITALS: Ht 170.2 cm; Wt 81.9 kg
[2017-08-10 20:50] LABS: PLATELET COUNT 363 x10^3mcL (130-400)
[2017-08-10 20:56] LABS: CALCIUM 8.7 mg/dL (8.5-10.1); CARBON DIOXIDE 24.9 mmol/L (21-32); CHLORIDE SERUM 105 mmol/L (98-107); CREATININE SERUM 0.8 mg/dL (0.6-1.0); GFR1 > 60 mL/min; GLUCOSE SERUM 118 mg/dL (74-106); POTASSIUM SERUM 3.9 mmol/L (3.5-5.1); SODIUM SERUM 138 mmol/L (136-145)
[2017-08-10 21:01] LABS: ALBUMIN 3.7 g/dL (3.4-5.0); ALKALINE PHOSPHATASE 83 U/L (46-116); ALT/SGPT 20 U/L (14-59); AST/SGOT 14 U/L (15-37); BILIRUBIN TOTAL 0.3 mg/dL (0.20-1.00); TOTAL PROTEIN, SERUM 7.5 g/dL (6.4-8.2)
[2017-08-10 21:26] LABS: BASOPHIL % 0 % (0-2); RED CELL DISTRIBUTION WIDTH 18.6 % (11.5-14.5)
[2017-08-10 22:05] LABS: rbc morphology (normal/abnorm) ABNORMAL (NORMAL)
[2017-08-10 22:08] LABS: CHOLESTEROL/HDL RATIO 2.8; MAGNESIUM 2.1 mg/dL (1.8-2.4); PHOSPHOROUS 3.7 mg/dL (2.5-4.9)
[2017-08-10 22:16] LABS: T3 TOTAL 0.83 ng/mL
[2017-08-10 22:30] VITALS: BP 131/69
[2017-08-10 22:50] LABS: FREE T4 0.97 ng/dL (0.76-1.46); FREE THYROXINE INDEX 2.7 ug/dL (1.4-4.5); T4(THYROXINE) 7.8 ug/dL (4.7-13.3)
[2017-08-11 00:30] LABS: IRON 13 ug/dL (50-170); TOTAL IRON BINDING CAPACITY 463 ug/dL (250-450)
[2017-08-11 00:35] LABS: RED BLOOD CELLS 3.1 M/mm3 (4.10-5.10)
[2017-08-11 05:34] VITALS: BP 101/56
[2017-08-11 07:07] LABS: CALCIUM 8.5 mg/dL (8.5-10.1); CARBON DIOXIDE 24.8 mmol/L (21-32); CHLORIDE SERUM 108 mmol/L (98-107); CREATININE SERUM 0.6 mg/dL (0.6-1.0); GFR1 > 60 mL/min; GLUCOSE SERUM 140 mg/dL (74-106); POTASSIUM SERUM 3.9 mmol/L (3.5-5.1); SODIUM SERUM 139 mmol/L (136-145)
[2017-08-11 07:36] LABS: BASOPHIL % 0.1 % (0-2); PLATELET COUNT 312 x10^3mcL (130-400)
[2017-08-11 07:39] LABS: RED CELL DISTRIBUTION WIDTH 18.8 % (11.5-14.5)
[2017-08-11 07:57] VITALS: Ht 170.2 cm; Wt 81.9 kg
[2017-08-11 11:31] LABS: rbc morphology (normal/abnorm) ABNORMAL (NORMAL)
== END 2017-08-11 10:10 | disposition left against medical advice (07) | DRG 532 ==
LOC: ED 19:24 → DU 21:40
PROVIDERS: Emergency Medicine; Family Medicine
DX: D25.9 Leiomyoma of uterus, unspecified (principal); N17.0 Acute kidney failure with tubular necrosis; N93.8 Other specified abnormal uterine and vaginal bleeding; J45.901 Unspecified asthma with (acute) exacerbation; G90.8 Other disorders of autonomic nervous system; Z88.5 Allergy status to narcotic agent; Z88.8 Allergy status to other drugs, medicaments and biological substances; W18.39XA Other fall on same level, initial encounter; Y93.41 Activity, dancing; Y92.098 Other place in other non-institutional residence as the place of occurrence of the external cause; Y99.8 Other external cause status; D64.9 Anemia, unspecified; G89.29 Other chronic pain; M54.9 Dorsalgia, unspecified; Z82.49 Family history of ischemic heart disease and other diseases of the circulatory system
CPT/HCPCS: 83880; 84439; J2270; J2916; J2930; J7030; J7620; Q0092; Q0163

== ENCOUNTER 2017-08-27 23:54 | Emergency (ER) | payer MEDICAID ==
[~2017-08-27] VITALS: Ht 162.6 cm; Wt 73.5 kg
[2017-08-27 23:58] VITALS: BP 112/73; Ht 162.6 cm; Wt 73.5 kg
== END 2017-08-28 00:09 | disposition left against medical advice (07) ==
LOC: ED 23:54
DX: Z53.21 Procedure and treatment not carried out due to patient leaving prior to being seen by health care provider (principal)

== ENCOUNTER 2017-08-28 12:26 | Emergency (ER) | payer MEDICAID ==
[~2017-08-28] VITALS: Ht 170.2 cm; Wt 83.5 kg
[2017-08-28 12:30] VITALS: BP 126/67; Ht 170.2 cm; Wt 83.5 kg
== END 2017-08-28 13:37 | disposition left against medical advice (07) ==
LOC: ED 12:26
DX: Z53.21 Procedure and treatment not carried out due to patient leaving prior to being seen by health care provider (principal)

== ENCOUNTER 2017-09-07 19:18 | Emergency (ER) | payer MEDICAID ==
[~2017-09-07] VITALS: Ht 170.2 cm; Wt 83.9 kg
[2017-09-07 19:54] VITALS: Ht 170.2 cm; Wt 83.9 kg
[2017-09-07 21:39] LABS: BASOPHIL % 0.4 % (0-2); PLATELET COUNT 261 x10^3mcL (130-400)
[2017-09-07 21:42] LABS: RED CELL DISTRIBUTION WIDTH 21.1 % (11.5-14.5)
[2017-09-07 23:50] VITALS: BP 115/82
== END 2017-09-07 23:50 | disposition home or self-care (01) ==
LOC: ED 19:18
PROVIDERS: Emergency Medicine
DX: R10.9 Unspecified abdominal pain (principal); D64.9 Anemia, unspecified; G89.29 Other chronic pain; M54.9 Dorsalgia, unspecified; M54.2 Cervicalgia; Z88.8 Allergy status to other drugs, medicaments and biological substances; Z88.6 Allergy status to analgesic agent; Z88.9 Allergy status to unspecified drugs, medicaments and biological substances; Z88.5 Allergy status to narcotic agent
CPT/HCPCS: 36415; J7620

== ENCOUNTER 2017-10-04 08:04 | Emergency (ER) | payer MEDICAID ==
[~2017-10-04] VITALS: Ht 167.6 cm; Wt 83.9 kg
[2017-10-04 08:31] VITALS: Ht 167.6 cm; Wt 83.9 kg
[2017-10-04 09:27] LABS: microscopic required? NO
[2017-10-04 09:42] LABS: CALCIUM 8.5 mg/dL (8.5-10.1); CARBON DIOXIDE 27.8 mmol/L (21-32); CHLORIDE SERUM 108 mmol/L (98-107); CREATININE SERUM 0.6 mg/dL (0.6-1.0); GLUCOSE SERUM 110 mg/dL (74-106); POTASSIUM SERUM 3.5 mmol/L (3.5-5.1); SODIUM SERUM 143 mmol/L (136-145)
[2017-10-04 09:55] LABS: ALBUMIN 3.3 g/dL (3.4-5.0); ALKALINE PHOSPHATASE 98 U/L (46-116); ALT/SGPT 24 U/L (14-59); AST/SGOT 22 U/L (15-37); BILIRUBIN TOTAL 0.4 mg/dL (0.20-1.00); T4(THYROXINE) 5.8 ug/dL (4.7-13.3); TOTAL PROTEIN, SERUM 6.9 g/dL (6.4-8.2)
[2017-10-04 09:56] LABS: BASOPHIL % 0.5 % (0-2); PLATELET COUNT 244 x10^3mcL (130-400)
[2017-10-04 09:58] LABS: RED CELL DISTRIBUTION WIDTH 18.5 % (11.5-14.5)
[2017-10-04 10:14] LABS: UA SPECIFIC GRAVITY 1.025 (1.005-1.035); urine erythrocyte NEGATIVE (NEGATIVE)
[2017-10-04 10:24] VITALS: BP 118/60
== END 2017-10-04 10:35 | disposition left against medical advice (07) ==
LOC: ED 08:04
PROVIDERS: Emergency Medicine
DX: R30.0 Dysuria (principal); R10.30 Lower abdominal pain, unspecified; J45.909 Unspecified asthma, uncomplicated; M54.9 Dorsalgia, unspecified; G89.29 Other chronic pain; E66.01 Morbid (severe) obesity due to excess calories; F11.20 Opioid dependence, uncomplicated; Z88.8 Allergy status to other drugs, medicaments and biological substances; Z88.5 Allergy status to narcotic agent
CPT/HCPCS: 36415

== ENCOUNTER 2018-02-02 06:48 | Emergency (ER) | payer MEDICAID ==
[~2018-02-02] VITALS: Ht 170.2 cm; Wt 87.3 kg
[2018-02-02 06:55] VITALS: Ht 170.2 cm; Wt 87.3 kg
[2018-02-02 07:48] LABS: BASOPHIL % 0.5 % (0-2); PLATELET COUNT 270 x10^3mcL (130-400)
[2018-02-02 09:14] VITALS: BP 126/80
== END 2018-02-02 09:10 | disposition home or self-care (01) ==
LOC: ED 06:48
PROVIDERS: Emergency Medicine
DX: M54.9 Dorsalgia, unspecified (principal); D50.9 Iron deficiency anemia, unspecified; Z88.8 Allergy status to other drugs, medicaments and biological substances; Z88.6 Allergy status to analgesic agent; V43.62XA Car passenger injured in collision with other type car in traffic accident, initial encounter; Y93.89 Activity, other specified; Y92.488 Other paved roadways as the place of occurrence of the external cause; Y99.8 Other external cause status; J45.909 Unspecified asthma, uncomplicated; G89.29 Other chronic pain
CPT/HCPCS: 36415; J7512; J7620

== ENCOUNTER 2018-03-09 22:55 | Emergency (ER) | payer MEDICAID ==
[~2018-03-09] VITALS: Ht 170.2 cm; Wt 88.2 kg
[2018-03-10 00:59] LABS: BASOPHIL % 1.3 % (0-2); PLATELET COUNT 331 x10^3mcL (130-400)
[2018-03-10 01:17] LABS: CALCIUM 8.7 mg/dL (8.5-10.1); CARBON DIOXIDE 28.1 mmol/L (21-32); CHLORIDE SERUM 104 mmol/L (98-107); CREATININE SERUM 0.7 mg/dL (0.6-1.0); GFR1 > 60 mL/min; GLUCOSE SERUM 94 mg/dL (74-106); POTASSIUM SERUM 3.3 mmol/L (3.5-5.1); SODIUM SERUM 141 mmol/L (136-145)
[2018-03-10 01:22] LABS: ALBUMIN 3.4 g/dL (3.4-5.0); ALKALINE PHOSPHATASE 104 U/L (46-116); ALT/SGPT 24 U/L (14-59); AST/SGOT 13 U/L (15-37); BILIRUBIN TOTAL 0.3 mg/dL (0.20-1.00); TOTAL PROTEIN, SERUM 7.4 g/dL (6.4-8.2)
[2018-03-10 01:32] LABS: RED CELL DISTRIBUTION WIDTH 17.7 % (11.5-14.5)
[2018-03-10 01:35] LABS: rbc morphology (normal/abnorm) ABNORMAL (NORMAL)
[2018-03-10 02:48] VITALS: BP 110/74
== END 2018-03-10 02:48 | disposition home or self-care (01) ==
LOC: ED 22:55
PROVIDERS: Specialist
DX: J45.901 Unspecified asthma with (acute) exacerbation (principal); R10.30 Lower abdominal pain, unspecified; G89.29 Other chronic pain; M54.5 Low back pain; D25.9 Leiomyoma of uterus, unspecified; Z98.890 Other specified postprocedural states; Z88.8 Allergy status to other drugs, medicaments and biological substances; Z88.6 Allergy status to analgesic agent; Z88.5 Allergy status to narcotic agent
CPT/HCPCS: 36415; J1200; J7613; J7644

== ENCOUNTER 2018-03-24 06:32 | Emergency (ER) | payer MEDICAID ==
[~2018-03-24] VITALS: Ht 170.2 cm; Wt 90.1 kg
[2018-03-24 07:39] LABS: BASOPHIL % 0.4 % (0-2); PLATELET COUNT 301 x10^3mcL (130-400)
[2018-03-24 07:40] LABS: RED CELL DISTRIBUTION WIDTH 20.4 % (11.5-14.5)
[2018-03-24 08:17] LABS: ovalocyte/elliptocyte 1+; rbc morphology (normal/abnorm) ABNORMAL (NORMAL); tear drop cell (dacryocyte) 1+
[2018-03-24 09:01] LABS: CALCIUM 8.4 mg/dL (8.5-10.1); CARBON DIOXIDE 31.4 mmol/L (21-32); CHLORIDE SERUM 105 mmol/L (98-107); CREATININE SERUM 0.7 mg/dL (0.6-1.0); GFR1 > 60 mL/min; GLUCOSE SERUM 87 mg/dL (74-106); SODIUM SERUM 139 mmol/L (136-145)
[2018-03-24 09:06] LABS: ALBUMIN 3.2 g/dL (3.4-5.0); ALKALINE PHOSPHATASE 87 U/L (46-116); ALT/SGPT 28 U/L (14-59); AST/SGOT 21 U/L (15-37); BILIRUBIN TOTAL 0.4 mg/dL (0.20-1.00); TOTAL PROTEIN, SERUM 6.6 g/dL (6.4-8.2)
[2018-03-24 09:32] VITALS: BP 110/55
== END 2018-03-24 09:32 | disposition home or self-care (01) ==
LOC: ED 06:32
PROVIDERS: Emergency Medicine
DX: R07.89 Other chest pain (principal); J06.9 Acute upper respiratory infection, unspecified; D50.9 Iron deficiency anemia, unspecified; J45.909 Unspecified asthma, uncomplicated; Z88.8 Allergy status to other drugs, medicaments and biological substances
CPT/HCPCS: 36415; J7613; J7644; Q0092

== ENCOUNTER 2018-06-11 01:57 | Emergency (ER) | payer MEDICAID ==
[~2018-06-11] VITALS: Ht 170.2 cm; Wt 93.0 kg
[2018-06-11 02:02] VITALS: Ht 170.2 cm; Wt 93.0 kg
[2018-06-11 06:34] VITALS: BP 110/72
== END 2018-06-11 06:42 | disposition home or self-care (01) ==
LOC: ED 01:57
DX: N39.0 Urinary tract infection, site not specified (principal); G89.29 Other chronic pain; R07.89 Other chest pain; Z88.1 Allergy status to other antibiotic agents; Z88.6 Allergy status to analgesic agent; Z88.8 Allergy status to other drugs, medicaments and biological substances; Z86.2 Personal history of diseases of the blood and blood-forming organs and certain disorders involving the immune mechanism; Z87.19 Personal history of other diseases of the digestive system; Z85.028 Personal history of other malignant neoplasm of stomach; V48.6XXA Car passenger injured in noncollision transport accident in traffic accident, initial encounter; Y93.89 Activity, other specified; Y92.488 Other paved roadways as the place of occurrence of the external cause; Y99.8 Other external cause status

== ENCOUNTER 2018-06-12 00:44 | Emergency (ER) | payer MEDICAID ==
[~2018-06-12] VITALS: Ht 170.2 cm; Wt 92.5 kg
[2018-06-12 01:05] VITALS: Ht 170.2 cm; Wt 92.5 kg
[2018-06-12 01:45] LABS: CALCIUM 8.6 mg/dL (8.5-10.1); CARBON DIOXIDE 23.3 mmol/L (21-32); CHLORIDE SERUM 106 mmol/L (98-107); CREATININE SERUM 0.5 mg/dL (0.6-1.0); GFR1 > 60 mL/min; GLUCOSE SERUM 106 mg/dL (74-106); POTASSIUM SERUM 3.6 mmol/L (3.5-5.1); SODIUM SERUM 141 mmol/L (136-145)
[2018-06-12 01:52] LABS: ALBUMIN 3.4 g/dL (3.4-5.0); ALKALINE PHOSPHATASE 118 U/L (46-116); ALT/SGPT 46 U/L (14-59); AST/SGOT 42 U/L (15-37); TOTAL PROTEIN, SERUM 7.3 g/dL (6.4-8.2)
[2018-06-12 02:03] LABS: UA SPECIFIC GRAVITY >=1.030 (1.005-1.035); microscopic required? YES; urine erythrocyte NEGATIVE (NEGATIVE)
[2018-06-12 02:47] LABS: BASOPHIL % 0.6 % (0-2); PLATELET COUNT 272 x10^3mcL (130-400)
[2018-06-12 03:03] LABS: RED CELL DISTRIBUTION WIDTH 18.1 % (11.5-14.5)
[2018-06-12 04:16] VITALS: BP 107/65
== END 2018-06-12 04:16 | disposition home or self-care (01) ==
LOC: ED 00:44
PROVIDERS: Emergency Medicine
DX: D25.9 Leiomyoma of uterus, unspecified (principal); J45.909 Unspecified asthma, uncomplicated; G89.29 Other chronic pain; Z86.2 Personal history of diseases of the blood and blood-forming organs and certain disorders involving the immune mechanism; Z85.028 Personal history of other malignant neoplasm of stomach; Z87.19 Personal history of other diseases of the digestive system; Z98.890 Other specified postprocedural states; Z88.8 Allergy status to other drugs, medicaments and biological substances; Z88.1 Allergy status to other antibiotic agents; Z88.6 Allergy status to analgesic agent
CPT/HCPCS: 36415; 87491; 87591; Q0092

== ENCOUNTER 2018-06-19 03:07 | Emergency (ER) | payer MEDICAID ==
[~2018-06-19] VITALS: Ht 170.2 cm; Wt 92.1 kg
[2018-06-19 03:31] VITALS: Ht 170.2 cm; Wt 92.1 kg
[2018-06-19 04:25] LABS: BASOPHIL % 0.6 % (0-2); PLATELET COUNT 238 x10^3mcL (130-400); RED CELL DISTRIBUTION WIDTH 18.1 % (11.5-14.5)
[2018-06-19 04:40] LABS: CALCIUM 8.2 mg/dL (8.5-10.1); CARBON DIOXIDE 24.1 mmol/L (21-32); CHLORIDE SERUM 110 mmol/L (98-107); CREATININE SERUM 0.6 mg/dL (0.6-1.0); GFR1 > 60 mL/min; GLUCOSE SERUM 116 mg/dL (74-106); POTASSIUM SERUM 3.4 mmol/L (3.5-5.1); SODIUM SERUM 145 mmol/L (136-145)
[2018-06-19 04:44] LABS: ALKALINE PHOSPHATASE 122 U/L (46-116); ALT/SGPT 46 U/L (14-59); AST/SGOT 37 U/L (15-37); BILIRUBIN TOTAL 0.31 mg/dL (0.20-1.00); TOTAL PROTEIN, SERUM 6.9 g/dL (6.4-8.2)
[2018-06-19 04:45] LABS: ALBUMIN 3.2 g/dL (3.4-5.0)
[2018-06-19 10:50] VITALS: BP 121/73
== END 2018-06-19 10:50 | disposition left against medical advice (07) ==
LOC: ED 03:07
PROVIDERS: Emergency Medicine
DX: N93.8 Other specified abnormal uterine and vaginal bleeding (principal); D50.0 Iron deficiency anemia secondary to blood loss (chronic); J45.909 Unspecified asthma, uncomplicated; Z88.1 Allergy status to other antibiotic agents
CPT/HCPCS: J1200; J2270; J7613; J7644; Q0163

== ENCOUNTER 2018-07-09 08:01 | Emergency (ER) | payer MEDICAID ==
[~2018-07-09] VITALS: Ht 167.6 cm; Wt 74.8 kg
[2018-07-09 08:21] VITALS: Ht 167.6 cm; Wt 74.8 kg
[2018-07-09 09:00] LABS: microscopic required? NO
[2018-07-09 09:19] LABS: BASOPHIL % 0.4 % (0-2); PLATELET COUNT 304 x10^3mcL (130-400)
[2018-07-09 09:22] LABS: RED CELL DISTRIBUTION WIDTH 20.1 % (11.5-14.5)
[2018-07-09 09:33] LABS: CALCIUM 8.6 mg/dL (8.5-10.1); CARBON DIOXIDE 25.2 mmol/L (21-32); CHLORIDE SERUM 107 mmol/L (98-107); CREATININE SERUM 0.6 mg/dL (0.6-1.0); GFR1 > 60 mL/min; GLUCOSE SERUM 89 mg/dL (74-106); POTASSIUM SERUM 3.7 mmol/L (3.5-5.1); SODIUM SERUM 141 mmol/L (136-145)
[2018-07-09 09:34] LABS: UA SPECIFIC GRAVITY 1.025 (1.005-1.035); urine erythrocyte NEGATIVE (NEGATIVE)
[2018-07-09 09:36] LABS: ALBUMIN 3.5 g/dL (3.4-5.0); ALKALINE PHOSPHATASE 104 U/L (46-116); ALT/SGPT 39 U/L (14-59); AST/SGOT 28 U/L (15-37); BILIRUBIN TOTAL 0.43 mg/dL (0.20-1.00); LIPASE 140 IU/L (73-393); TOTAL PROTEIN, SERUM 7.5 g/dL (6.4-8.2)
[2018-07-09 11:04] VITALS: BP 96/64
== END 2018-07-09 11:04 | disposition home or self-care (01) ==
LOC: ED 08:01
PROVIDERS: Emergency Medicine
DX: G89.29 Other chronic pain (principal); R10.9 Unspecified abdominal pain; R07.89 Other chest pain; D64.9 Anemia, unspecified; J45.909 Unspecified asthma, uncomplicated; Z85.028 Personal history of other malignant neoplasm of stomach; Z88.6 Allergy status to analgesic agent; Z88.8 Allergy status to other drugs, medicaments and biological substances; V49.59XA Passenger injured in collision with other motor vehicles in traffic accident, initial encounter; Y93.89 Activity, other specified; Y92.413 State road as the place of occurrence of the external cause; Y99.8 Other external cause status
CPT/HCPCS: 36415; J7613; Q0092

== ENCOUNTER 2018-07-20 00:21 | Emergency (ER) | payer MEDICAID ==
[~2018-07-20] VITALS: Ht 172.7 cm; Wt 90.7 kg
[2018-07-20 00:37] VITALS: Ht 172.7 cm; Wt 90.7 kg
[2018-07-20 02:15] LABS: BASOPHIL % 0.3 % (0-2); PLATELET COUNT 255 x10^3mcL (130-400)
[2018-07-20 02:30] LABS: CALCIUM 8.4 mg/dL (8.5-10.1); CARBON DIOXIDE 26.3 mmol/L (21-32); CHLORIDE SERUM 107 mmol/L (98-107); CREATININE SERUM 0.7 mg/dL (0.6-1.0); GFR1 > 60 mL/min; GLUCOSE SERUM 107 mg/dL (74-106); POTASSIUM SERUM 3.4 mmol/L (3.5-5.1); SODIUM SERUM 141 mmol/L (136-145)
[2018-07-20 02:34] LABS: ALBUMIN 3.6 g/dL (3.4-5.0); ALKALINE PHOSPHATASE 108 U/L (46-116); ALT/SGPT 42 U/L (14-59); AST/SGOT 41 U/L (15-37); BILIRUBIN TOTAL 0.41 mg/dL (0.20-1.00); CHOLESTEROL 148 mg/dL (<200); HDL CHOLESTEROL 50 mg/dL (40-60); LIPASE 144 IU/L (73-393); TOTAL PROTEIN, SERUM 7.3 g/dL (6.4-8.2); TRIGLYCERIDES 94 mg/dL (<150)
[2018-07-20 02:40] LABS: RED CELL DISTRIBUTION WIDTH 18.3 % (11.5-14.5)
[2018-07-20 04:16] VITALS: BP 110/69
== END 2018-07-20 04:16 | disposition home or self-care (01) ==
LOC: ED 00:21
PROVIDERS: Specialist
DX: R07.89 Other chest pain (principal); D53.9 Nutritional anemia, unspecified; G89.29 Other chronic pain; M54.9 Dorsalgia, unspecified; Z85.028 Personal history of other malignant neoplasm of stomach; Z88.6 Allergy status to analgesic agent; Z88.8 Allergy status to other drugs, medicaments and biological substances; V49.9XXD Car occupant (driver) (passenger) injured in unspecified traffic accident, subsequent encounter
CPT/HCPCS: 36415; Q0092; Q0163

== ENCOUNTER 2018-07-20 07:16 | Emergency (ER) | payer MEDICAID ==
[~2018-07-20] VITALS: Ht 172.7 cm; Wt 89.8 kg
[2018-07-20 07:24] VITALS: Ht 172.7 cm; Wt 89.8 kg
[2018-07-20 07:56] LABS: BASOPHIL % 0.1 % (0-2); PLATELET COUNT 257 x10^3mcL (130-400); RED CELL DISTRIBUTION WIDTH 20.1 % (11.5-14.5)
[2018-07-20 08:07] LABS: CALCIUM 8.2 mg/dL (8.5-10.1); CARBON DIOXIDE 22.8 mmol/L (21-32); CHLORIDE SERUM 106 mmol/L (98-107); CREATININE SERUM 0.7 mg/dL (0.6-1.0); GFR1 > 60 mL/min; GLUCOSE SERUM 104 mg/dL (74-106); POTASSIUM SERUM 3.4 mmol/L (3.5-5.1); SODIUM SERUM 137 mmol/L (136-145)
[2018-07-20 08:11] LABS: ALBUMIN 3.8 g/dL (3.4-5.0); ALKALINE PHOSPHATASE 111 U/L (46-116); ALT/SGPT 45 U/L (14-59); AMYLASE 51 U/L (25-115); AST/SGOT 33 U/L (15-37); LIPASE 93 IU/L (73-393); TOTAL PROTEIN, SERUM 7.9 g/dL (6.4-8.2)
[2018-07-20 08:45] VITALS: BP 100/45
== END 2018-07-20 08:45 | disposition home or self-care (01) ==
LOC: ED 07:16
PROVIDERS: Emergency Medicine
DX: R10.84 Generalized abdominal pain (principal); G89.29 Other chronic pain; R11.10 Vomiting, unspecified; R19.7 Diarrhea, unspecified; Z88.6 Allergy status to analgesic agent; Z88.1 Allergy status to other antibiotic agents; Z88.8 Allergy status to other drugs, medicaments and biological substances
CPT/HCPCS: 36415; Q0162; Q0163

== ENCOUNTER 2018-07-25 00:52 | Emergency (ER) | payer MEDICAID ==
[~2018-07-25] VITALS: Ht 172.7 cm; Wt 88.5 kg
[2018-07-25 00:58] VITALS: Ht 172.7 cm; Wt 88.5 kg
[2018-07-25 02:03] VITALS: BP 105/47
== END 2018-07-25 02:03 | disposition home or self-care (01) ==
LOC: ED 00:52
DX: S20.212A Contusion of left front wall of thorax, initial encounter (principal); Z88.6 Allergy status to analgesic agent; Z88.8 Allergy status to other drugs, medicaments and biological substances; V87.8XXA Person injured in other specified noncollision transport accidents involving motor vehicle (traffic), initial encounter; Y93.I9 Activity, other involving external motion; Y92.413 State road as the place of occurrence of the external cause; Y99.8 Other external cause status
CPT/HCPCS: Q0092

== ENCOUNTER 2018-08-02 06:42 | Emergency (ER) | payer MEDICAID ==
[~2018-08-02] VITALS: Ht 172.7 cm; Wt 88.5 kg
[2018-08-02 06:51] VITALS: Ht 172.7 cm; Wt 88.5 kg
[2018-08-02 08:01] VITALS: BP 110/76
== END 2018-08-02 08:02 | disposition home or self-care (01) ==
LOC: ED 06:42
DX: Z04.1 Encounter for examination and observation following transport accident (principal); G89.29 Other chronic pain; M54.9 Dorsalgia, unspecified; J45.909 Unspecified asthma, uncomplicated; E66.9 Obesity, unspecified; F11.10 Opioid abuse, uncomplicated; Z88.6 Allergy status to analgesic agent; Z88.5 Allergy status to narcotic agent; V49.59XA Passenger injured in collision with other motor vehicles in traffic accident, initial encounter; Y93.89 Activity, other specified; Y92.413 State road as the place of occurrence of the external cause; Y99.9 Unspecified external cause status

== ENCOUNTER 2018-09-17 01:12 | Emergency (ER) | payer MEDICAID ==
[~2018-09-17] VITALS: Ht 170.2 cm; Wt 93.4 kg
[2018-09-17 01:26] VITALS: Ht 170.2 cm; Wt 93.4 kg
[2018-09-17 03:50] VITALS: BP 131/76
== END 2018-09-17 03:50 | disposition home or self-care (01) ==
LOC: ED 01:12
DX: G89.29 Other chronic pain (principal); J45.909 Unspecified asthma, uncomplicated; R10.9 Unspecified abdominal pain; M54.9 Dorsalgia, unspecified; M54.2 Cervicalgia; Z88.8 Allergy status to other drugs, medicaments and biological substances; Z88.6 Allergy status to analgesic agent
CPT/HCPCS: J2270

== ENCOUNTER 2018-09-25 01:01 | Emergency (ER) | payer MEDICAID ==
[~2018-09-25] VITALS: Ht 172.7 cm; Wt 92.1 kg
[2018-09-25 01:06] VITALS: Ht 172.7 cm; Wt 92.1 kg
[2018-09-25 02:21] LABS: CALCIUM 8.9 mg/dL (8.5-10.1); CARBON DIOXIDE 26.5 mmol/L (21-32); CHLORIDE SERUM 110 mmol/L (98-107); CREATININE SERUM 0.7 mg/dL (0.6-1.0); GFR1 > 60 mL/min; GLUCOSE SERUM 99 mg/dL (74-106); POTASSIUM SERUM 3.5 mmol/L (3.5-5.1); SODIUM SERUM 147 mmol/L (136-145)
[2018-09-25 02:25] LABS: ALBUMIN 3.6 g/dL (3.4-5.0); ALKALINE PHOSPHATASE 127 U/L (46-116); ALT/SGPT 37 U/L (14-59); AST/SGOT 28 U/L (15-37); BILIRUBIN TOTAL 0.35 mg/dL (0.20-1.00); LIPASE 189 IU/L (73-393); TOTAL PROTEIN, SERUM 7.4 g/dL (6.4-8.2)
[2018-09-25 02:29] LABS: BASOPHIL % 0.5 % (0-2); PLATELET COUNT 258 x10^3mcL (130-400)
[2018-09-25 02:35] LABS: RED CELL DISTRIBUTION WIDTH 20.4 % (11.5-14.5)
[2018-09-25 02:49] LABS: rbc morphology (normal/abnorm) ABNORMAL (NORMAL)
[2018-09-25 02:50] LABS: tear drop cell (dacryocyte) 1+
[2018-09-25 05:23] VITALS: BP 134/70
== END 2018-09-25 05:23 | disposition home or self-care (01) ==
LOC: ED 01:01
PROVIDERS: Emergency Medicine
DX: G89.29 Other chronic pain (principal); R10.84 Generalized abdominal pain; R07.89 Other chest pain; J45.909 Unspecified asthma, uncomplicated; Z87.19 Personal history of other diseases of the digestive system; Z85.028 Personal history of other malignant neoplasm of stomach; Z88.1 Allergy status to other antibiotic agents; Z88.6 Allergy status to analgesic agent; Z88.8 Allergy status to other drugs, medicaments and biological substances
CPT/HCPCS: 36415; Q0163

== ENCOUNTER 2018-10-22 00:47 | Emergency (ER) | payer MEDICAID ==
[~2018-10-22] VITALS: Ht 167.6 cm; Wt 93.0 kg
[2018-10-22 00:52] VITALS: Ht 167.6 cm; Wt 93.0 kg
[2018-10-22 04:53] LABS: BASOPHIL % 0.6 % (0-2); PLATELET COUNT 241 x10^3mcL (130-400)
[2018-10-22 04:55] LABS: RED CELL DISTRIBUTION WIDTH 17.1 % (11.5-14.5)
[2018-10-22 05:45] VITALS: BP 137/80
== END 2018-10-22 05:45 | disposition home or self-care (01) ==
LOC: ED 00:47
PROVIDERS: Emergency Medicine
DX: R10.9 Unspecified abdominal pain (principal); G89.29 Other chronic pain; M54.9 Dorsalgia, unspecified; J45.909 Unspecified asthma, uncomplicated; Z88.8 Allergy status to other drugs, medicaments and biological substances; Z88.6 Allergy status to analgesic agent; Z88.5 Allergy status to narcotic agent
CPT/HCPCS: 36415; J1200

== ENCOUNTER 2018-10-23 02:14 | Emergency (ER) | payer MEDICAID ==
[~2018-10-23] VITALS: Ht 170.2 cm; Wt 93.9 kg
[2018-10-23 02:37] VITALS: Ht 170.2 cm; Wt 93.9 kg
[2018-10-23 02:52] VITALS: BP 101/41
== END 2018-10-23 02:52 | disposition left against medical advice (07) ==
LOC: ED 02:14
DX: Z53.21 Procedure and treatment not carried out due to patient leaving prior to being seen by health care provider (principal)

== ENCOUNTER 2018-10-27 10:10 | Emergency (ER) | payer MEDICAID ==
[~2018-10-27] VITALS: Ht 170.2 cm; Wt 92.5 kg
[2018-10-27 10:14] VITALS: BP 111/44; Ht 170.2 cm; Wt 92.5 kg
[2018-10-27 11:06] LABS: BASOPHIL % 0.5 % (0-2); PLATELET COUNT 244 x10^3mcL (130-400)
[2018-10-27 11:08] LABS: RED CELL DISTRIBUTION WIDTH 16.8 % (11.5-14.5)
[2018-10-27 11:11] LABS: CALCIUM 8.9 mg/dL (8.5-10.1); CARBON DIOXIDE 25.5 mmol/L (21-32); CHLORIDE SERUM 108 mmol/L (98-107); CREATININE SERUM 0.7 mg/dL (0.6-1.0); GFR1 > 60 mL/min; GLUCOSE SERUM 95 mg/dL (74-106); POTASSIUM SERUM 3.4 mmol/L (3.5-5.1); SODIUM SERUM 143 mmol/L (136-145)
== END 2018-10-27 12:20 | disposition home or self-care (01) ==
LOC: ED 10:10
PROVIDERS: Emergency Medicine
DX: M25.511 Pain in right shoulder (principal); R07.89 Other chest pain; R10.9 Unspecified abdominal pain; J45.909 Unspecified asthma, uncomplicated; G89.29 Other chronic pain; Z86.2 Personal history of diseases of the blood and blood-forming organs and certain disorders involving the immune mechanism; Z87.19 Personal history of other diseases of the digestive system; Z85.028 Personal history of other malignant neoplasm of stomach; Z98.890 Other specified postprocedural states; Z88.1 Allergy status to other antibiotic agents; Z88.6 Allergy status to analgesic agent
CPT/HCPCS: 36415; Q0163

== ENCOUNTER 2018-11-11 03:18 | Emergency (ER) | payer MEDICAID ==
[~2018-11-11] VITALS: Ht 170.2 cm; Wt 93.6 kg
[2018-11-11 03:25] VITALS: Ht 170.2 cm; Wt 93.6 kg
[2018-11-11 04:11] LABS: BASOPHIL % 0.5 % (0-2); PLATELET COUNT 257 x10^3mcL (130-400)
[2018-11-11 04:20] LABS: RED CELL DISTRIBUTION WIDTH 14.7 % (11.5-14.5)
[2018-11-11 05:16] VITALS: BP 141/46
== END 2018-11-11 05:16 | disposition home or self-care (01) ==
LOC: ED 03:18
PROVIDERS: Emergency Medicine
DX: R07.89 Other chest pain (principal); M54.2 Cervicalgia; N93.9 Abnormal uterine and vaginal bleeding, unspecified; D64.9 Anemia, unspecified; J45.909 Unspecified asthma, uncomplicated; G89.29 Other chronic pain; Z85.42 Personal history of malignant neoplasm of other parts of uterus; Z85.028 Personal history of other malignant neoplasm of stomach; Z87.19 Personal history of other diseases of the digestive system; Z88.1 Allergy status to other antibiotic agents; Z88.6 Allergy status to analgesic agent; Z88.8 Allergy status to other drugs, medicaments and biological substances
CPT/HCPCS: 36415; Q0092

== ENCOUNTER 2018-11-12 00:47 | Emergency (ER) | payer MEDICAID ==
[~2018-11-12] VITALS: Ht 167.6 cm; Wt 93.0 kg
[2018-11-12 00:51] VITALS: Ht 167.6 cm; Wt 93.0 kg
[2018-11-12 04:10] VITALS: BP 126/62
== END 2018-11-12 04:10 | disposition home or self-care (01) ==
LOC: ED 00:47
DX: R07.89 Other chest pain (principal); G89.29 Other chronic pain; R06.02 Shortness of breath; R10.9 Unspecified abdominal pain; R11.2 Nausea with vomiting, unspecified; J45.909 Unspecified asthma, uncomplicated; Z90.49 Acquired absence of other specified parts of digestive tract